=== PATIENT | female | born 1950 ===

== ENCOUNTER 2016-12-23 11:35 | Observation (INO) | payer MEDICAID ==
[2016-12-23] MEDS ORDERED: Sodium Chloride 0.9% 500 ML IV STA (12:21)
--- NOTE | 2016-12-23 12:37 | ED PDOC ---
HPI: General Adult Time Seen by Provider: 12/23/16 11:57 Chief Complaint (Nursing): Dizziness/Lightheaded Chief Complaint (Provider): Dizziness/Lightheaded History Per: Patient History/Exam Limitations: no limitations Onset/Duration Of Symptoms: Days (1 month), Intermittent Episodes Additional Complaint(s): Felicita Rodriguez is a 66 year old female, with a past medical history of asthma and hypercholesterolemia, who presents to the emergency department complaining of mild chronic dizziness associated with neck pain left side, generalized weakness , nausea, vomiting and headache intermittently ongoing for the past month. She denies abdominal pain, bloody vomit or numbness. She states she had chest pain yesterday which has since resolved. PMD: Frankie Fuller Past Medical History Reviewed: Historical Data, Nursing Documentation, Vital Signs Vital Signs: Last Vital Signs Temp 97.6 F 12/23/16 12:02 Pulse 82 12/23/16 12:02 Resp 16 12/23/16 12:02 BP 146/79 12/23/16 12:02 Pulse Ox 99 12/23/16 14:12 - Medical History PMH: Arthritis, Asthma, Gastritis, Hiatal Hernia, Hypercholesterolemia, Osteoporosis - Surgical History Surgical History: (x 2) - Family History Family History: States: Unknown Family Hx - Living Arrangements Living Arrangements: With Family - Social History Current smoker - smoking cessation education provided: No Alcohol: None Drugs: Denies - Home Medications Home Medications: Ambulatory Orders Medication Instructions Recorded Albuterol Sulfate [Albuterol Hfa] 0.09 mg IH QID PRN #1 ml 05/28/14 Azithromycin [Zithromax] 250 mg PO DAILY #4 cap NS 05/28/14 Loratadine/Pseudoephedrine S 1 t12 PO BID PRN #30 t12 05/28/14 [Claritin-D 12Hr 5 mg-120 mg] Ibuprofen [Motrin Tab] 800 mg PO Q8 PRN #20 tab 03/12/15 Tizanidine Hydrochloride 4 mg PO Q6 PRN #20 tab 03/12/15 [Tizanidine HCl] Tramadol Hydrochloride [Tramadol 50 mg PO Q6H PRN #20 tab 03/12/15 HCl] - Allergies Allergies/Adverse Reactions: Allergies Allergy/AdvReac Type Severity Reaction Status Date / Time aspirin Allergy RASH Verified 12/23/16 12:02 Review of Systems ROS Statement: Except As Marked, All Systems Reviewed And Found Negative Constitutional: Positive for: Weakness (generalized ) Cardiovascular: Positive for: Chest Pain Gastrointestinal: Positive for: Nausea, Vomiting. Negative for: Abdominal Pain , Hematemesis Musculoskeletal: Positive for: Neck Pain Neurological: Positive for: Headache (Mild), Dizziness Physical Exam - Reviewed Nursing Documentation Reviewed: Yes Vital Signs Reviewed: Yes - Physical Exam Appears: Positive for: Non-toxic, No Acute Distress Head Exam: Positive for: ATRAUMATIC, NORMAL INSPECTION, NORMOCEPHALIC Skin: Positive for: Normal Color, Warm, Dry Eye Exam: Positive for: Normal appearance, EOMI, PERRL. Negative for: Nystagmus ENT: Positive for: Normal ENT Inspection Neck: Positive for: Supple. Negative for: Painless ROM (mild tenderness in left sternocleidomastoid) Cardiovascular/Chest: Positive for: Regular Rate, Rhythm Respiratory: Positive for: CNT, Normal Breath Sounds Gastrointestinal/Abdominal: Positive for: Normal Exam, Bowel Sounds, Soft. Negative for: Tenderness Back: Positive for: Normal Inspection. Negative for: L CVA Tenderness, R CVA Tenderness, Vertebral Tenderness Extremity: Positive for: Normal ROM, Capillary Refill (< 2 seconds). Negative for: Tenderness, Pedal Edema, Calf Tenderness, Deformity, Swelling Neurologic/Psych: Positive for: Alert, business performance manager II-XII, Oriented. Negative for: Motor/Sensory Deficits - Laboratory Results Result Diagrams: 12/23/16 12:15 12/23/16 12:15 Interpretation Of Abn Labs: no acute - ECG ECG: Positive for: Interpreted By Me, Viewed By Me ECG Rhythm: Positive for: Normal QRS, Normal ST Segment, Sinus Rhythm O2 Sat by Pulse Oximetry: 99 (RA) Pulse Ox Interpretation: Normal - Radiology X-Ray: Interpreted by Me, Viewed By Me X-Ray Interpretation: No Acute Disease - CT Scan/US head Other Rad Studies (CT/US): Read By Radiologist Other Rad Interpretation: no acute - Progress ED Course And Treament: 1410: Stable. AAOx3. Pain free. Spoke with Dr. Fuller. Wants obs tele. Spoke with Dr. Crandall. Will admit obs tele. No ASA, pt. allergic. Medical Decision Making Medical Decision Making: Initial Impression: Dizziness Initial Plan: --CT head w/o contrast --EKG --Comp Metabolic Panel --Troponin I --CBC w/ differential --PT --PTT --CXR --Antivert 25mg PO --IV NS 500 ml at 100 mls/hr --Zofran Inj 4 mg IV once --reevaluation Scribe Attestation: Documented by Denver Ambrose, acting as a scribe for Shar Sauceda MD. Provider Scribe Attestation: All medical record entries made by the Scribe were at my direction and personally dictated by me. I have reviewed the chart and agree that the record accurately reflects my personal performance of the history, physical exam, medical decision making, and the department course for this patient. I have also personally directed, reviewed, and agree with the discharge instructions and disposition. Disposition - Clinical Impression Clinical Impression: Dizziness, Chest pain - Patient ED Disposition Is Patient to be Admitted: No Counseled Patient/Family Regarding: Studies Performed, Diagnosis - Disposition Disposition Time: 14:11 Condition: FAIR - Pt Status Changed To: Hospital Disposition Of: Observation - POA Present On Arrival: None
[2016-12-23 13:18] LABS: BASO # 0.1 K/uL (0.0-0.2); EOS # 0.6 K/uL (0.0-0.7); LYMPH # 2.4 K/uL (1.0-4.3); LYMPH % 29.2 % (20.0-40.0); MEAN CELL VOLUME 93.3 fl (81.0-99.0); MEAN CORPUSCULAR HEMOGLOBIN 30.7 pg (27.0-31.0); MEAN CORPUSCULAR HGB CONC 32.9 g/dL (33.0-37.0); MEAN PLATELET VOLUME 9.7 fl (7.2-11.7); MONO # 0.7 K/uL (0.0-0.8); MONO % 8.5 % (0.0-10.0); NEUT # 4.4 K/uL (1.8-7.0); NEUT % 54.3 % (50.0-75.0); NRBC % 0.1 % (0.0-0.0); RBC 4.57 Mil/uL (3.80-5.20); RED CELL DISTRIBUTION WIDTH 13.3 % (11.5-14.5); WHITE BLOOD COUNT 8.1 K/uL (4.8-10.8)
--- NOTE | 2016-12-23 13:42 | CT ---
PROCEDURE: CT HEAD WITHOUT CONTRAST. HISTORY: headache COMPARISON: None available. TECHNIQUE: Axial computed tomography images were obtained through the head/brain without intravenous contrast. Radiation dose: Total exam DLP = 71.02 mGy-cm. This CT exam was performed using one or more of the following dose reduction techniques: Automated exposure control, adjustment of the mA and/or kV according to patient size, and/or use of iterative reconstruction technique. FINDINGS: HEMORRHAGE: No intracranial hemorrhage. BRAIN: No mass effect or edema. No atrophy or chronic microvascular ischemic changes. VENTRICLES: Unremarkable. No hydrocephalus. CALVARIUM: Unremarkable. PARANASAL SINUSES: Chronic ethmoid and sphenoid sinusitis. No evidence of acute sinusitis. MASTOID AIR CELLS: Unremarkable as visualized. No inflammatory changes. OTHER FINDINGS: None. IMPRESSION: No intracranial mass, hemorrhage or evidence of acute infarct. Chronic ethmoid and sphenoid sinusitis noted.
[2016-12-23 13:44] LABS: INR 1.1 (0.9-1.2); PARTIAL THROMBOPLASTIN TIME 32.5 Seconds (25.6-37.1); PROTHROMBIN TIME 12.2 Seconds (9.8-13.1)
[2016-12-23 13:49] LABS: ALB/GLOB RATIO 1.1 (1.0-2.1); ALBUMIN 4.2 g/dL (3.5-5.0); ALT/SGPT 40 U/L (9-52); AST/SGOT 28 U/L (14-36); BLOOD UREA NITROGEN 13 mg/dl (7-17); CALCIUM 9.7 mg/dL (8.4-10.2); GFR AFRICAN-AMERICAN > 60; GFR NON-AFRICAN AMERICAN > 60
--- NOTE | 2016-12-23 14:23 | RAD ---
HISTORY: Dizziness, vomiting an unspecified pain COMPARISON: 05/28/2014. TECHNIQUE: Chest PA and lateral FINDINGS: LUNGS: No active pulmonary disease. PLEURA: No significant pleural effusion identified. No pneumothorax apparent. CARDIOVASCULAR: Normal. OSSEOUS STRUCTURES: No significant abnormalities. VISUALIZED UPPER ABDOMEN: Normal. OTHER FINDINGS: None. IMPRESSION: No active disease. No significant interval change compared to the prior examination(s). No preliminary report provided by emergency department personnel.
[2016-12-23] MEDS ORDERED: Fluticasone-Salmeterol 100-50mcg Diskus IH SCH (15:15)
--- NOTE | 2016-12-23 15:31 | CP.PCM.HP ---
History of Present Illness - History of Present Illness History of Present Illness: 66 yo female with history of Asthma, HLD, Arhtritis, Herniated Disc and probably Dementia and Depression came in complaining of mild on and off left sided chest pain radiating to the left shoulder and neck (or the other way around) since about 4 weeks ago. also complained of generalized weakness, headache and dizziness. Denied SOB, fever or chills. Present on Admission - Present on Admission Any Indicators Present on Admission: No History of DVT/PE: No History of Uncontrolled Diabetes: No Urinary Catheter: No Decubitus Ulcer Present: No Review of Systems - Review of Systems All systems: reviewed and no additional remarkable complaints except (aside from those mentioned above, 12 point system review were negative by me) Past Patient History - Tetanus Immunizations Tetanus Immunization: Unknown - Past Medical History & Family History Past Family History: Reviewed and not pertinent - Past Social History Smoking Status: Former Smoker Alcohol: None Drugs: Denies - CARDIAC Hx Hypercholesterolemia: Yes - PULMONARY Hx Asthma: Yes - NEUROLOGICAL Hx Dementia: Yes (patient on Namenda) Hx Dizziness: Yes - HEENT Hx HEENT Problems: No - RENAL Hx Chronic Kidney Disease: No - ENDOCRINE/METABOLIC Hx Endocrine Disorders: No - HEMATOLOGICAL/ONCOLOGICAL Hx Blood Disorders: No - INTEGUMENTARY Hx Dermatological Problems: No - MUSCULOSKELETAL/RHEUMATOLOGICAL Hx Arthritis: Yes Hx Back Pain: Yes Hx Degenerative Joint Disease: Yes Hx Herniated Disk: Yes Hx Osteoarthritis: Yes Hx Osteoporosis: Yes - GASTROINTESTINAL Hx Gastritis: Yes - GENITOURINARY/GYNECOLOGICAL Hx Genitourinary Disorders: No - PSYCHIATRIC Hx Psychophysiologic Disorder: No Hx Substance Use: No - SURGICAL HISTORY Hx Section: Yes - ANESTHESIA Hx Anesthesia: Yes Hx Anesthesia Reactions: No Meds Allergies/Adverse Reactions: Allergies Allergy/AdvReac Type Severity Reaction Status Date / Time aspirin Allergy RASH Verified 12/23/16 12:02 Physical Exam - Constitutional Appears: No Acute Distress - Head Exam Head Exam: ATRAUMATIC - Eye Exam Eye Exam: absent: Scleral icterus - ENT Exam ENT Exam: Mucous Membranes Moist - Neck Exam Neck exam: Negative for: Meningismus - Respiratory Exam Respiratory Exam: absent: Rhonchi, Wheezes, Respiratory Distress - Cardiovascular Exam Cardiovascular Exam: REGULAR RHYTHM, +S1, +S2 - GI/Abdominal Exam GI & Abdominal Exam: Soft. absent: Tenderness - Rectal Exam Rectal Exam: Deferred - Extremities Exam Extremities exam: Negative for: calf tenderness, pedal edema - Back Exam Back exam: NORMAL INSPECTION - Neurological Exam Neurological exam: Alert, Oriented x3 - Psychiatric Exam Psychiatric exam: Normal Affect - Skin Skin Exam: Dry, Intact Results - Vital Signs Recent Vital Signs: Last Vital Signs Temp 97.6 F 12/23/16 12:02 Pulse 82 12/23/16 12:02 Resp 16 12/23/16 12:02 BP 146/79 12/23/16 12:02 Pulse Ox 99 12/23/16 14:25 - Labs Result Diagrams: 12/23/16 12:15 12/23/16 12:15 Labs: Laboratory Results - last 24 hr 12/23/16 12/23/16 12/23/16 12:15 12:15 12:15 WBC 8.1 RBC 4.57 Hgb 14.0 Hct 42.6 MCV 93.3 MCH 30.7 MCHC 32.9 L RDW 13.3 Plt Count 270 MPV 9.7 Neut % (Auto) 54.3 Lymph % (Auto) 29.2 [place] % (Auto) 8.5 Eos % (Auto) 7.0 H Baso % (Auto) 1.0 Neut # 4.4 Lymph # 2.4 [place] # 0.7 Eos # 0.6 Baso # 0.1 PT 12.2 INR 1.1 APTT 32.5 Sodium 143 Potassium 4.7 Chloride 104 Carbon Dioxide 31 H Anion Gap 13 BUN 13 Creatinine 0.8 Est GFR ( Amer) > 60 Est GFR (Non-Af Amer) > 60 Random Glucose 88 Calcium 9.7 Total Bilirubin 0.5 AST 28 ALT 40 Alkaline Phosphatase 68 Troponin I < 0.0120 Total Protein 8.1 Albumin 4.2 Globulin 3.8 Albumin/Globulin Ratio 1.1 Assessment & Plan (1) Chest pain Status: Acute Comment: place on chest pain observation in telemetry. serial Troponin and EKG. ASA 81mg PO daily. NTG SL prn for chest pain (2) Asthma Status: Inactive Comment: continue Advair and Montelukast. Albuterol inhaler 2 puffs q 4hrs prn for SOB/wheezing (3) Arthritis Status: Acute Comment: Tramadol 50mg PO q 6hrs prn for pain (4) HLD (hyperlipidemia) Status: Acute Comment: continue [place]-3 Fatty Acid. lipid profile (5) DVT prophylaxis Status: Acute Comment: Lovenox 40mg SC daily
[2016-12-23] MEDS ORDERED: OMEGA PO SCH (17:00)
[2016-12-23] MEDS ORDERED: FATTY ACIDS PO SCH (17:00)
[2016-12-23] MEDS ORDERED: FISH OIL PO SCH (17:00)
--- NOTE | 2016-12-23 18:53 | CARD ---
APPROVED REPORT EKG Measurement Heart [id number] DC [id number] <Conclusion> Normal sinus rhythm Septal infarct, age undetermined Abnormal ECG
[2016-12-23] MEDS ORDERED: Pneumococcal 23-Valent Vaccine IM ONE (21:00)
[2016-12-24 00:03] VITALS: RESP 18
[2016-12-24 07:23] LABS: BASO # 0.1 K/uL (0.0-0.2); BASO % 0.7 % (0.0-2.0); EOS # 0.7 K/uL (0.0-0.7); EOS % 9.7 % (0.0-4.0); HEMOGLOBIN 13.4 g/dL (12.0-16.0); LYMPH # 3.2 K/uL (1.0-4.3); LYMPH % 41.9 % (20.0-40.0); MEAN CELL VOLUME 93.7 fl (81.0-99.0); MEAN CORPUSCULAR HEMOGLOBIN 31.4 pg (27.0-31.0); MEAN CORPUSCULAR HGB CONC 33.5 g/dL (33.0-37.0); MEAN PLATELET VOLUME 9.7 fl (7.2-11.7); MONO # 0.7 K/uL (0.0-0.8); MONO % 8.6 % (0.0-10.0); NEUT % 39.1 % (50.0-75.0); NRBC % 0.3 % (0.0-0.0); RBC 4.28 Mil/uL (3.80-5.20); RED CELL DISTRIBUTION WIDTH 12.9 % (11.5-14.5); WHITE BLOOD COUNT 7.6 K/uL (4.8-10.8)
[2016-12-24 07:31] LABS: BLOOD UREA NITROGEN 18 mg/dl (7-17); CALCIUM 9.2 mg/dL (8.4-10.2); GFR AFRICAN-AMERICAN > 60; GFR NON-AFRICAN AMERICAN > 60; HDL CHOLESTEROL 34 MG/DL (30-70)
[2016-12-24 07:43] LABS: LDL CHOLESTEROL 144 mg/dL (0-129)
[2016-12-24 08:42] VITALS: BP 127/82; PULSE 67; TEMP 97.9; O2SAT 100
[2016-12-24] MEDS ORDERED: Enoxaparin 40 mg Syringe SC SCH (09:00)
[2016-12-24] MEDS ORDERED: Fluticasone-Salmeterol 100-50mcg Diskus IH SCH (09:00)
[2016-12-24] MEDS ORDERED: Pantoprazole 40 mg EC Tab PO SCH (09:00)
--- NOTE | 2016-12-24 12:00 | CP.PCM.DIS ---
Provider - Provider Date of Admission: 12/23/16 14:04 Attending physician: Cricket Crandall MD Primary care physician: Dr Fuller Time Spent in preparation of Discharge (in minutes): 35 Diagnosis - Discharge Diagnosis (1) Chest pain Status: Acute Comment: serial Troponins were negative. pt was discharged in stable condition (2) Asthma Status: Inactive Comment: asymptomatic. continue Advair and Montelukast (3) Arthritis Status: Acute Comment: continue Tramadol as needed (4) HLD (hyperlipidemia) Status: Acute Comment: continue Lipitor 10mg PO HS Hospital Course - Lab Results Lab Results: Most Recent Lab Values WBC 7.6 K/uL (4.8-10.8) 12/24/16 06:40 RBC 4.28 Mil/uL (3.80-5.20) 12/24/16 06:40 Hgb 13.4 g/dL (12.0-16.0) 12/24/16 06:40 Hct 40.1 % (34.0-47.0) 12/24/16 06:40 MCV 93.7 fl (81.0-99.0) 12/24/16 06:40 MCH 31.4 pg (27.0-31.0) H 12/24/16 06:40 MCHC 33.5 g/dL (33.0-37.0) 12/24/16 06:40 RDW 12.9 % (11.5-14.5) 12/24/16 06:40 Plt Count 229 K/uL (130-400) 12/24/16 06:40 MPV 9.7 fl (7.2-11.7) 12/24/16 06:40 Neut % (Auto) 39.1 % (50.0-75.0) L 12/24/16 06:40 Lymph % (Auto) 41.9 % (20.0-40.0) H 12/24/16 06:40 [place] % (Auto) 8.6 % (0.0-10.0) 12/24/16 06:40 Eos % (Auto) 9.7 % (0.0-4.0) H 12/24/16 06:40 Baso % (Auto) 0.7 % (0.0-2.0) 12/24/16 06:40 Neut # 3.0 K/uL (1.8-7.0) 12/24/16 06:40 Lymph # 3.2 K/uL (1.0-4.3) 12/24/16 06:40 [place] # 0.7 K/uL (0.0-0.8) 12/24/16 06:40 Eos # 0.7 K/uL (0.0-0.7) 12/24/16 06:40 Baso # 0.1 K/uL (0.0-0.2) 12/24/16 06:40 PT 12.2 Seconds (9.8-13.1) 12/23/16 12:15 INR 1.1 (0.9-1.2) 12/23/16 12:15 APTT 32.5 Seconds (25.6-37.1) 12/23/16 12:15 Sodium 142 mmol/l (132-148) 12/24/16 06:40 Potassium 4.8 MMOL/L (3.6-5.0) 12/24/16 06:40 Chloride 104 mmol/L (98-107) 12/24/16 06:40 Carbon Dioxide 30 mmol/L (22-30) 12/24/16 06:40 Anion Gap 13 (10-20) 12/24/16 06:40 BUN 18 mg/dl (7-17) H 12/24/16 06:40 Creatinine 0.9 mg/dL (0.7-1.2) 12/24/16 06:40 Est GFR ( Amer) > 60 12/24/16 06:40 Est GFR (Non-Af Amer) > 60 12/24/16 06:40 Random Glucose 84 mg/dL (65-105) 12/24/16 06:40 Calcium 9.2 mg/dL (8.4-10.2) 12/24/16 06:40 Total Bilirubin 0.5 mg/dl (0.2-1.3) 12/23/16 12:15 AST 28 U/L (14-36) 12/23/16 12:15 ALT 40 U/L (9-52) 12/23/16 12:15 Alkaline Phosphatase 68 U/L (38-126) 12/23/16 12:15 Troponin I < 0.0120 ng/mL (0.00-0.120) 12/24/16 06:40 Total Protein 8.1 G/DL (6.3-8.2) 12/23/16 12:15 Albumin 4.2 g/dL (3.5-5.0) 12/23/16 12:15 Globulin 3.8 gm/dL (2.2-3.9) 12/23/16 12:15 Albumin/Globulin Ratio 1.1 (1.0-2.1) 12/23/16 12:15 Triglycerides 158 mg/DL (0-149) H 12/24/16 06:40 Cholesterol 238 mg/dL (0-199) H 12/24/16 06:40 LDL Cholesterol Direct 144 mg/dL (0-129) H 12/24/16 06:40 HDL Cholesterol 34 MG/DL (30-70) 12/24/16 06:40 - Hospital Course Hospital Course: 66 yo female with history of Asthma, HLD, Arhtritis, Herniated Disc and probably Dementia and Depression came in complaining of mild on and off left sided chest pain radiating to the left shoulder and neck. The patient was placed on chest pain observation in telemetry. No further recurrence of chest pain was noted and serial Troponins were all negative for ischemic events but her lipid profile showed hyperlipidemia. Patient was discharged in stable condition and advised to take Lipitor 10mg PO HS. Discharge Exam - Head Exam Head Exam: ATRAUMATIC - Eye Exam Eye Exam: absent: Scleral icterus - ENT Exam ENT Exam: Mucous Membranes Moist - Respiratory Exam Respiratory Exam: NORMAL BREATHING PATTERN. absent: Wheezes, Respiratory Distress - Cardiovascular Exam Cardiovascular Exam: REGULAR RHYTHM, +S1, +S2 - GI/Abdominal Exam GI & Abdominal Exam: Soft. absent: Tenderness - Rectal Exam Rectal Exam: Deferred - Neurological Exam Neurological exam: Alert, Oriented x3 - Psychiatric Exam Psychiatric exam: Normal Affect - Skin Skin Exam: Dry, Intact Discharge Plan - Discharge Medications Prescriptions: Atorvastatin [Lipitor] 10 mg PO DIN #30 tab - Follow Up Plan Condition: FAIR Disposition: HOME/ ROUTINE Instructions: Chest Pain (DC), Dizziness (GEN)
== END 2016-12-24 11:30 | disposition home or self-care (01) ==
LOC: H.ER 11:35 → H.ERHOLD 14:04 → H.TEL 17:29
DX: R07.89 Other chest pain (principal); E78.00 Pure hypercholesterolemia, unspecified; E78.5 Hyperlipidemia, unspecified; F03.90 Unspecified dementia, unspecified severity, without behavioral disturbance, psychotic disturbance, mood disturbance, and anxiety; F32.9 Major depressive disorder, single episode, unspecified; J45.909 Unspecified asthma, uncomplicated; M19.90 Unspecified osteoarthritis, unspecified site; M81.0 Age-related osteoporosis without current pathological fracture; K29.70 Gastritis, unspecified, without bleeding; K44.9 Diaphragmatic hernia without obstruction or gangrene; Z23 Encounter for immunization